=== PATIENT | male | born 1980 | race African-American/Black ===

== ENCOUNTER 2018-12-12 06:09 | Emergency (ER) | payer OTHER ==
[2018-12-12 07:06] VITALS: TEMP 98
[2018-12-12] MEDS ORDERED: LIDOCAINE 5% TOPICAL PATCH TP ONE (07:15)
[2018-12-12] MEDS ORDERED: diazePAM 5 MG TABLET PO ONE (07:15)
[2018-12-12] MEDS ORDERED: IBUPROFEN 400 MG TABLET (FP) PO ONE ×2 (07:15→07:36)
--- NOTE | 2018-12-12 07:19 | PDOC ---
History of Present Illness - General Chief Complaint: Chest Pain Stated Complaint: CHEST PAIN Time Seen by Provider: 12/12/18 07:04 History Source: Patient Exam Limitations: No Limitations - History of Present Illness Initial Comments: 12/12/18 07:15 Patient is a 38M with history of HTN here today complaining of chest pain that onset last night. Patient endorses cleaning out his basement earlier in the day. He states that he is presenting today because he had difficulty with turning the steering wheel. Pain is worse with palpation and movement of left arm. Denies fevers, chills, nausea, vomiting. Denies shortness of breath, endorses a mild cough. Father had bypass in 70s. Denies history of blood clots, recent travel, leg swelling. Has taken no medication. Family available to drive patient home. Past History - Past Medical History Allergies/Adverse Reactions: Allergies Allergy/AdvReac Type Severity Reaction Status Date / Time No Known Allergies Allergy Verified 04/03/18 13:01 Home Medications: Ambulatory Orders Lisinopril 10 mg PO DAILY 04/03/18 COPD: No DVT: No Dementia: No HTN: Yes - Immunization History Immunization Up to Date: Yes - Suicide/Smoking/Psychosocial Hx Smoking History: Never smoked Have you smoked in the past 12 months: No Hx Alcohol Use: Yes (daily) Drug/Substance Use Hx: No Substance Use Type: None Review of Systems - Review of Systems Able to Perform ROS?: Yes Comments:: 12/12/18 07:24 GENERAL/CONSTITUTIONAL: No fever or chills. No weakness. HEAD, EYES, EARS, NOSE AND THROAT: No change in vision. No ear pain or discharge. No sore throat. CARDIOVASCULAR: +chest pain no shortness of breath RESPIRATORY: +cough, no wheezing, or hemoptysis. GASTROINTESTINAL: No nausea, vomiting, diarrhea or constipation. GENITOURINARY: No dysuria, frequency, or change in urination. MUSCULOSKELETAL: No joint or muscle swelling or pain. No neck or back pain. SKIN: No rash NEUROLOGIC: No headache, vertigo, loss of consciousness, or change in strength/ sensation. HEMATOLOGIC/LYMPHATIC: No anemia, easy bleeding, or history of blood clots. ALLERGIC/IMMUNOLOGIC: No hives or skin allergy. *Physical Exam - Vital Signs Last Vital Signs Temp Pulse Resp BP Pulse Ox 98.0 F 66 18 150/86 99 12/12/18 07:05 12/12/18 07:05 12/12/18 06:27 12/12/18 07:05 12/12/18 07:05 - Physical Exam Comments: 12/12/18 07:24 GENERAL: Awake, alert, and fully oriented, in no acute distress CHEST: Tender along L pectoralis major, pain with movement of arm HEAD: No signs of trauma, normocephalic, atraumatic EYES: PERRLA, EOMI, sclera anicteric, conjunctiva clear ENT: Auricles normal inspection, hearing grossly normal, nares patent, oropharynx clear without exudates. Moist mucosa NECK: Normal ROM, supple, no lymphadenopathy, JVD, or masses LUNGS: No distress, speaks full sentences, clear to auscultation bilaterally HEART: Regular rate and rhythm, normal S1 and S2, no murmurs, rubs or gallops, peripheral pulses normal and equal bilaterally. ABDOMEN: Soft, nontender, normoactive bowel sounds. No guarding, no rebound. No masses EXTREMITIES: Normal inspection, Normal range of motion, no edema. No clubbing or cyanosis. NEUROLOGICAL: Cranial nerves II through XII grossly intact. Normal speech, no focal sensorimotor deficits SKIN: Warm, Dry, normal turgor, no rashes or lesions noted. Medical Decision Making - Medical Decision Making 12/12/18 07:25 Patient is 38M with history of HTN here today with chest pain. EKG shows NSR with normal rate. No st elevations/depressions. Normal axis. Normal intervals. No significant t wave abnormalities. ACS and other major causes of chest pain considered, dismissed given age, onset, and exquisite tenderness along pectoralis. Will treat with motrin, valium, lidocaine patch. Will do CXR to rule out pneumonia, pneumothorax. 12/12/18 08:20 CXR negative. Patient reassessed, pain improved, can move arm now with little pain. Will discharge home. *DC/Admit/Observation/Transfer Diagnosis at time of Disposition: Chest pain - Discharge Dispostion Disposition: HOME Condition at time of disposition: Good Decision to Admit order: No - Referrals - Patient Instructions Printed Discharge Instructions: DI for Atypical Chest Pain Additional Instructions: Please follow up with your primary care provider. If you do not have one, one is listed below. Please return if you have any new, worsening or concerning symptoms, especially increasing pain, fever and shortness of breath. Please take the flexeril as needed for muscle spasm and motrin for pain. - Post Discharge Activity Forms/Work/School Notes: Back to Work
--- NOTE | 2018-12-12 07:30 | PDOC ---
Attending Attestation - Resident Resident Name: Tevin Schmitz - ED Attending Attestation I have performed the following: I have examined & evaluated the patient, The case was reviewed & discussed with the resident, I agree w/resident's findings & plan - HPI HPI: 12/12/18 07:31 38-year-old male with history of hypertension lisinopril presenting with left- sided sharp chest pain worse with movement beginning since last night. He has not taken any medications for pain. He admits to cleaning the basement and lifting several days ago but denies any direct trauma or falls. Denies any shortness breath, palpitations, dizziness. He started to have URI symptoms yesterday to today, no fevers. No abdominal symptoms, vomiting or diarrhea. - Physicial Exam PE: 12/12/18 07:30 NAD, well appearing, MMM, nl conjunctiva, anicteric; neck supple. very reproducible left pectoralis/anterior chest wall Tenderness to palp. lungs clear , RRR, no murmur, abdomen soft nontender. MARTIN x4, no focal neuro deficits. No peripheral edema. normal color for ethnicity, WW. - Medical Decision Making 12/12/18 07:31 See HPI for details Vital signs reviewed, mild hypertension, but in pain. has h/o htn, on lisinopril EKG normal sinus rhythm at 61 bpm, no interval abnormalities, narrow QRS, ST and T wave segments and morphology normal. ED course - Well-appearing, no acute distress. Chest pain is very reproducible to palpation over the left pectoralis muscle, no exertional component, nonradiating , sharp in nature with preceding MSK trigger, so likelihood of this being cardiac in nature.. low suspicion for cardiac type cp based on clinical history and exam. no PE risk factors, no leg swelling/immobilization or surgeries, perc neg, so doubt PE/VTE. This is likely MSK in etiology. EKG is normal sinus rhythm without interval derangements or ST segment depressions/elevations, without ischemic changes. Mildly hypertensive but patient is on lisinopril which he took this morning for his high blood pressure. Chest x-ray is clear without evidence of pneumonia, normal cardiac silhouette and no edema/effusion. Analgesia administered with topical lidocaine patch for myofascial pain, Valium for muscle relaxation and ibuprofen, with symptomatic improvement of his chest pain. able to range his arm more, pain improved. Dispo: Pt informed of my clinical impression, treatment recommendations and disposition plan. All questions answered to patient's satisfaction and expressed understanding and comfort with this. Reasons for returning to the ED sooner discussed with the patient otherwise, follow up with primary care physician. At the time of discharge, the patient is alert, clinically improved, tolerating po and verbalizes understanding of instructions. Patient does not suffer from an acute life-threatening medical condition at this time she is safe for outpatient follow-up. 12/12/18 07:35 12/12/18 08:24 Heart Score/ECG Review #1 ECG reviewed & interpreted by me at: 06:35 General ECG Interpretation: Sinus Rhythm, Normal Rate, Normal Intervals, No acute ischemic changes 12/12/18 07:35 EKG normal sinus rhythm at 61 bpm, no interval abnormalities, narrow QRS, ST and T wave segments and morphology normal.
[2018-12-12] MEDS ORDERED: diazePAM 5 MG TABLET ONE (07:31)
[2018-12-12] MEDS ORDERED: LIDOCAINE 5% TOPICAL PATCH ONE (07:31)
[2018-12-12 08:39] VITALS: BP 151/90; PULSE 65
--- NOTE | 2018-12-12 14:42 | EKG ---
Test Reason : Blood Pressure : / mmHG Vent. Rate : 061 BPM Atrial Rate : 061 BPM P-R Int : 180 ms QRS Dur : 088 ms QT Int : 400 ms P-R-T Axes : 032 047 035 degrees QTc Int : 402 ms NORMAL SINUS RHYTHM NORMAL ECG WHEN COMPARED WITH ECG OF 03-APR-2018 13:08, NO SIGNIFICANT CHANGE WAS FOUND Confirmed by Phong North ([id number]) on 12/12/2018 2:41:35 PM Referred By: Confirmed By:Phong North
[2018-12-12] MEDS ORDERED: LIDOCAINE PATCH REMOVAL MC SCH (22:00)
== END 2018-12-12 08:39 | disposition home or self-care (01) ==
LOC: JER 06:09
DX: R07.9 Chest pain, unspecified (principal); I10 Essential (primary) hypertension
CPT/HCPCS: 71046-TC-FY; 93005; 93010; 99282-25

== ENCOUNTER 2019-07-04 15:16 | Emergency (ER) | payer OTHER ==
[2019-07-04 15:30] VITALS: BMI 30.8
--- NOTE | 2019-07-04 15:40 | PDOC ---
Rapid Medical Evaluation Chief Complaint: Blood Pressure Problem Time Seen by Provider: 07/04/19 15:37 Medical Evaluation: Allergies Allergy/AdvReac Type Severity Reaction Status Date / Time No Known Allergies Allergy Verified 07/04/19 15:29 Vital Signs Temp Pulse Resp BP Pulse Ox 98.1 F 81 19 142/99 99 07/04/19 15:27 07/04/19 15:27 07/04/19 15:27 07/04/19 15:27 07/04/19 15:27 07/04/19 15:38 Pt c/o: elevated bp x 2 days (170/100) doubled his lisinopril dose this am but still with elevated bp and mild frontal throbbing headache Pt on brief exam:142/99, no jvd, lcta, no lower extremity edema Pt ordered for: labs, urine, ekg Pt to proceed to the ED Discharge Disposition - Diagnosis Hypertension - Referrals - Patient Instructions - Post Discharge Activity
[2019-07-04 16:09] LABS: BASO % 0.6 % (0-2.0); EOS % 1.1 % (0-4.5); HEMATOCRIT 43.8 % (35.4-49); HEMOGLOBIN 14.9 GM/dL (11.7-16.9); LYMPH % 53.8 % (8-40); MEAN CELL VOLUME 88.3 fl (80-96); MEAN PLT VOLUME 10.4 fl (7.5-11.1); MONO % 5.6 % (3.8-10.2); NEUT % 38.9 % (42.8-82.8); PLATELET COUNT 149 K/MM3 (134-434); RBC 4.96 M/mm3 (4.00-5.60); WHITE BLOOD COUNT 3.3 K/mm3 (4.0-10.0)
[2019-07-04 16:11] LABS: PH,URINE 6.5 (5.0-8.0); URINE APPEARANCE CLEAR; URINE BILIRUBIN NEGATIVE (NEGATIVE); URINE COLOR YELLOW; URINE GLUCOSE (UA) NEGATIVE (NEGATIVE); URINE KETONE NEGATIVE (NEGATIVE); URINE LEUK ESTERASE NEGATIVE (NEGATIVE); URINE NITRITE NEGATIVE (NEGATIVE); URINE PROTEIN NEGATIVE (NEGATIVE); URINE UROBILINOGEN 0.2 mg/dL (0.2-1.0)
--- NOTE | 2019-07-04 16:23 | PDOC ---
Attending Attestation - Resident Resident Name: SantillanJos corado - ED Attending Attestation I have performed the following: I have examined & evaluated the patient, The case was reviewed & discussed with the resident, I agree w/resident's findings & plan, Exceptions are as noted - HPI HPI: 07/04/19 16:25 Mr Rivas is a 39 yo M h/o HTN on Lisinopril who presents to the ER with a complaint of persistently elevated BP and headache Pt headache is at the top of his head and frontal Began 5 days ago after returning from work Headache was bearable and minor initially Pain has been worsening over the past few days No associated neck pain No fevers or chills No head trauma No vomiting Tolerating PO Per , pt has been drinking more alcohol and she thinks this is the cause of his headaches 07/04/19 18:40 - Physicial Exam PE: 07/04/19 16:23 GENERAL: The patient is in no acute distress. HEAD: Normal EYES: PERRLA, EOMI, sclera anicteric, conjunctiva clear. ENT: Ears normal, nares patent, oropharynx clear without exudates. Moist mucous membranes. NECK: Normal range of motion, supple LUNGS: Breath sounds equal, clear to auscultation bilaterally. No wheezes, and no crackles. HEART:Regular rate and rhythm, normal S1 and S2 without murmur, rub or gallop. ABDOMEN: Soft, nontender, normoactive bowel sounds. No guarding, no rebound. EXTREMITIES: Normal range of motion, no edema. NEUROLOGICAL: Cranial nerves II through XII grossly intact. Normal speech. No focal neurological deficits. Mental status: The patient is oriented x3. Cranial nerves: Cranial nerves II through XII are intact Motor: The upper extremities are 5 over 5 in all muscle groups. The lower extremities are 5 over 5 in all muscle groups. Sensation: Sensation is intact to light touch throughout. Cerebellar: Dveiue-chnxnh-nvhm is normal in both upper extremities. Heel-knee- wilson is normal in both lower extremities. Reflexes: 2+ and symmetric in the upper and lower extremities. Gait: Normal. Heel and toe walking are normal. MUSCULOSKELETAL: Back non-tender to palpation, no CVA tenderness SKIN: Warm, Dry, normal turgor, no rashes or lesions noted. - Medical Decision Making 07/04/19 16:19 Laboratory Tests 07/04/19 07/04/19 15:30 15:30 WBC 3.3 L Hgb 14.9 Hct 43.8 Plt Count 149 Urine Blood Negative Urine Nitrite Negative Ur Leukocyte Esterase Negative EKG - Twelve-lead EKG was personally reviewed. There is normal sinus rhythm. The axis is normal. The intervals are normal. There is no atrial or ventricular hypertrophy. There are no ST or T wave abnormalities. There is normal R wave progression. Impression: Normal 12 lead EKG Will give tylenol for headache CT ordered Pt refused 07/04/19 18:29 Upon reassessment, pt states he feels better Will discharge to home Pt asked to follow up with PMD for possible medication adjustment Clinical impression: headache, initial presentation hypertension, initial presentation
[2019-07-04] MEDS ORDERED: ACETAMINOPHEN 500 MG TABLET (FP) PO ONE (16:27)
--- NOTE | 2019-07-04 16:27 | PDOC ---
History of Present Illness - General Chief Complaint: Blood Pressure Problem Stated Complaint: HIGH BLOOD PRESSURE Time Seen by Provider: 07/04/19 15:37 - History of Present Illness Initial Comments: 07/04/19 16:21 39 yo M PMH HTN, migraines, coming in with elevated blood pressure for 2 days. States that he tried taking two of his lisinopril 10mg pills without effect. Denies CP, SOB, N/V, abd pain, fevers/chills, constipation/diarrhea. Does endorse frontal headache and urinary frequency. Patient is very concerned that he could be having a stroke. Reports that his grandfather of a stroke and a lot of family members have had this issue, so he was worried. Also states that he read on the Internet that some antihypertensives can cause impotency. Reports that he has been having significantly more stress recently, and asks whether this could be contributing to his headache or his elevated blood pressure. Past History - Past Medical History Allergies/Adverse Reactions: Allergies Allergy/AdvReac Type Severity Reaction Status Date / Time No Known Allergies Allergy Verified 07/04/19 15:29 Home Medications: Ambulatory Orders Lisinopril 10 mg PO DAILY 04/03/18 Cyclobenzaprine HCl [Flexeril -] 10 mg PO TID #10 tablet 12/12/18 COPD: No DVT: No Dementia: No HTN: Yes - Immunization History Immunization Up to Date: Yes - Psycho Social/Smoking Cessation Hx Smoking History: Never smoked Have you smoked in the past 12 months: No Information on smoking cessation initiated: No Hx Alcohol Use: No Drug/Substance Use Hx: No Substance Use Type: None Review of Systems - Review of Systems Constitutional: No: Chills, Diaphoresis, Fever HEENTM: No: Eye Pain, Blurred Vision, Recent change in vision, Double Vision, Hearing Loss, Throat Swelling, Difficulty Swallowing Respiratory: No: Cough, Orthopnea, Shortness of Breath Cardiac (ROS): No: Chest Pain, Irregular Heart Rate, Palpitations, Chest Tightness ABD/GI: No: Constipated, Diarrhea, Nausea, Vomiting : Yes: Frequency. No: Burning, Dysuria, Discharge, Flank Pain Musculoskeletal: No: Back Pain, Muscle Weakness Neurological: Yes: Headache. No: Numbness, Tingling, Weakness, Unsteady Gait, Ataxia, Dizziness *Physical Exam - Vital Signs Last Vital Signs Temp Pulse Resp BP Pulse Ox 98.1 F 81 19 142/99 99 07/04/19 15:27 07/04/19 15:27 07/04/19 15:27 07/04/19 15:27 07/04/19 15:27 - Physical Exam Comments: 07/04/19 18:10 Gen: well-developed, well-nourished, NAD Neuro: AAOX4, CN II-XII intact, FTN intact, EOMI, PERRLA, 5/5 strength, SILT HEENT: atraumatic, normocephalic, dry mucous membranes Neck: trachea midline, supple CV: regular rate, regular rhythm, no murmurs, rubs, or gallops Pulm: CTA b/l, no wheezing Abd: soft, non-distended, non-tender MSK: full ROM, intact pulses Extr: no edema, no deformities Skin: warm, dry ED Treatment Course - LABORATORY CBC & Chemistry Diagram: 07/04/19 15:30 07/04/19 15:30 - ADDITIONAL ORDERS Additional order review: Laboratory Results 07/04/19 15:30 Urine Color Yellow Urine Appearance Clear Urine pH 6.5 Ur Specific [place] 1.016 Urine Protein Negative Urine Glucose (UA) Negative Urine Ketones Negative Urine Blood Negative Urine Nitrite Negative Urine Bilirubin Negative Urine Urobilinogen 0.2 Ur Leukocyte Esterase Negative 07/04/19 15:30 RBC 4.96 MCV 88.3 MCHC 34.0 RDW 12.0 MPV 10.4 Neutrophils % 38.9 L D Lymphocytes % 53.8 H D Monocytes % 5.6 Eosinophils % 1.1 D Basophils % 0.6 Medical Decision Making - Medical Decision Making 07/04/19 16:24 Gave thorough explanation of long-term risks of hypertension, and stressed both that he is not currently having stroke, but also that adequate control of blood pressure is important to reduce long-term chances of stroke. Patient relieved by this conversation. Will provide BOWEN medication, follow up labs, likely dc with close outpatient follow-up and potential adjustment of blood pressure medication regimen. 07/04/19 16:45 Labs unremarkable, UA unremarkable. 07/04/19 16:47 Normal sinus at 69 bpm, normal intervals, no ST segment elevations or T wave inversions. 07/04/19 17:44 Patient reassessed, feeling significantly better. Will finish fluids, likely dc home. Discharge - Discharge Information Problems reviewed: Yes Clinical Impression/Diagnosis: Hypertension, Headache Condition: Improved - Follow up/Referral Referrals: Johny Omalley [Primary Care Provider] - - Patient Discharge Instructions Patient Printed Discharge Instructions: DI for High Blood Pressure, DI for Headache Additional Instructions: You were seen with a headache and with higher blood pressures for the past 2 days. Your blood pressure in the ED was only slightly elevated, and your headache resolved after medication. Your labs and EKG did not show any concerning findings. Please follow up with your primary care doctor within 1 week, and discuss your current blood pressure medication regimen with him. Return to the ED if you develop worsening symptoms such as chest pain or shortness of breath. - Post Discharge Activity
[2019-07-04 16:36] LABS: ALBUMIN 4.2 g/dl (3.4-5.0); BILIRUBIN,TOTAL 1.6 mg/dL (0.2-1); BLOOD UREA NITROGEN 7.9 mg/dL (7-18); CALCIUM 9.5 mg/dL (8.5-10.1); CREATININE 1.1 mg/dL (0.55-1.3); MAGNESIUM 1.9 mg/dL (1.8-2.4); POTASSIUM 4.2 mmol/L (3.5-5.1); TOT PROT 7.9 g/dl (6.4-8.2)
[2019-07-04] MEDS ORDERED: ACETAMINOPHEN 325 MG TABLET (FP) ONE (16:42)
[2019-07-04] MEDS ORDERED: SODIUM CHLORIDE 1,000 ML IV STA (16:59)
[2019-07-04] MEDS ORDERED: METOCLOPRAMIDE HCL INJECTION 10 MG/2 ML VIAL IVPUSH ONE (16:59)
[2019-07-04] MEDS ORDERED: METOCLOPRAMIDE HCL INJECTION 10 MG/2 ML VIAL ONE (17:13)
[2019-07-04 18:35] VITALS: BP 138/92; PULSE 76; TEMP 98
--- NOTE | 2019-07-05 13:35 | EKG ---
Test Reason : Blood Pressure : / mmHG Vent. Rate : 069 BPM Atrial Rate : 069 BPM P-R Int : 174 ms QRS Dur : 086 ms QT Int : 358 ms P-R-T Axes : 029 035 038 degrees QTc Int : 383 ms NORMAL SINUS RHYTHM NORMAL ECG WHEN COMPARED WITH ECG OF 12-DEC-2018 06:34, NO SIGNIFICANT CHANGE WAS FOUND Confirmed by SHEEBA KNIGHT MD ([id number]) on 07/05/2019 1:35:21 PM Referred By: Confirmed By:SHEEBA KNIGHT MD
== END 2019-07-04 18:35 | disposition home or self-care (01) ==
LOC: JER 15:16
PROC: 3E033GC Introduction of Other Therapeutic Substance into Peripheral Vein, Percutaneous Approach (ICD-10-PCS; principal; 2019-07-04)
DX: I10 Essential (primary) hypertension (principal); R51 Headache
CPT/HCPCS: 36415; 80053; 81003; 83735; 85025; 93005; 93010; 99283-25; J7030

== ENCOUNTER 2021-10-09 17:44 | Emergency (ER) | payer OTHER ==
[2021-10-09 18:01] VITALS: TEMP 98; BMI 31.4
[2021-10-09] MEDS ORDERED: ASPIRIN 81 MG CHEWABLE TABLETS PO ONE (19:59)
[2021-10-09] MEDS ORDERED: ASPIRIN 81 MG CHEWABLE TABLETS ONE (20:30)
[2021-10-09 20:58] LABS: BASO % 0.4 % (0-2.0); EOS % 0.5 % (0-4.5); HEMATOCRIT 44.8 % (35.4-49); HEMOGLOBIN 15.5 GM/dL (11.7-16.9); LYMPH % 47.4 % (8-40); MCH 30.3 pg (25.7-33.7); MCHC 34.6 g/dl (32.0-35.9); MEAN CELL VOLUME 87.4 fl (80-96); MEAN PLT VOLUME 10.2 fl (7.5-11.1); MONO % 5.2 % (3.8-10.2); NEUT % 46.5 % (42.8-82.8); PLATELET COUNT 180 10^3/uL (134-434); RBC 5.12 M/mm3 (4.00-5.60); RDW 12.7 % (11.9-15.9); WHITE BLOOD COUNT 4.6 K/mm3 (4.0-10.0)
[2021-10-09 21:05] LABS: INR 1.21 (0.83-1.09)
[2021-10-09 21:08] LABS: ACTIVATED PTT 31.3 SECONDS (25.2-36.5)
[2021-10-09 21:26] LABS: CHLORIDE 104 mmol/L (98-107); SODIUM 139 mmol/L (136-145)
[2021-10-09 21:28] LABS: ALBUMIN 4.5 g/dl (3.4-5.0); ANION GAP 7 MMOL/L (8-16); BLOOD UREA NITROGEN 12.4 mg/dL (7-18); CALCIUM 9.5 mg/dL (8.5-10.1); CO2 28 mmol/L (21-32); LIPASE 94 U/L (73-393); MAGNESIUM 2.1 mg/dL (1.8-2.4)
[2021-10-09 21:29] LABS: GLUCOSE,RANDOM 80 mg/dL (74-106)
[2021-10-09 21:31] LABS: SGOT/AST 17 U/L (15-37); SGPT/ALT 29 U/L (13-61)
[2021-10-09 21:33] LABS: BILIRUBIN,TOTAL 1.6 mg/dL (0.2-1); TOT PROT 8.4 g/dl (6.4-8.2)
[2021-10-09 21:34] LABS: ALK PHOS 84 U/L (45-117)
[2021-10-10 00:43] VITALS: BP 140/82; PULSE 85
== END 2021-10-10 00:43 | disposition home or self-care (01) ==
LOC: JER 17:44
DX: R10.13 Epigastric pain (principal); R07.9 Chest pain, unspecified
CPT/HCPCS: 36415; 71046-TC-FY; 76705-TC; 80053; 82550; 82553; 83690; 83735; 84484; 85025; 85610; 85730; 93005; 93010; 99285-25

== ENCOUNTER 2023-07-25 09:42 | Inpatient (IN) | payer OTHER ==
[2023-07-25] MEDS ORDERED: SODIUM CHLORIDE 1,000 ML IV STA (10:45)
[2023-07-25] MEDS ORDERED: PANTOPRAZOLE SODIUM 40 MG VIAL IVPUSH ONE (11:08)
[2023-07-25 11:53] LABS: BASO % 0.6 % (0-2.0); HEMATOCRIT 41.4 % (35.4-49); HEMOGLOBIN 14.6 GM/dL (11.7-16.9); LYMPH % 31.7 % (8-40); MCH 30.9 pg (25.7-33.7); MCHC 35.1 g/dl (32.0-35.9); MEAN PLT VOLUME 9.9 fl (7.5-11.1); MONO % 4.6 % (3.8-10.2); NEUT % 63.1 % (42.8-82.8); PLATELET COUNT 190 10^3/uL (134-434); RBC 4.71 M/mm3 (4.00-5.60); RDW 12.3 % (11.9-15.9); WHITE BLOOD COUNT 4.2 K/mm3 (4.0-10.0)
[2023-07-25 12:03] LABS: INR 1.24 (0.83-1.09); PROTHROMBIN TIME (PATIENT) 14.4 SEC (9.7-13.0)
[2023-07-25 12:05] LABS: ACTIVATED PTT 29.2 SECONDS (25.2-36.5)
[2023-07-25 12:10] LABS: POTASSIUM 4.6 mmol/L (3.5-5.1)
[2023-07-25 12:12] LABS: CALCIUM 9.1 mg/dL (8.5-10.1)
[2023-07-25 12:13] LABS: ALBUMIN 4.2 g/dl (3.4-5.0); BLOOD UREA NITROGEN 10.8 mg/dL (7-18)
[2023-07-25 12:17] LABS: TOT PROT 8.1 g/dl (6.4-8.2)
[2023-07-25 12:18] LABS: BILIRUBIN,TOTAL 0.9 mg/dL (0.2-1)
[2023-07-25] MEDS ORDERED: PANTOPRAZOLE SODIUM 40 MG VIAL ONE (12:20)
[2023-07-25 18:47] VITALS: BMI 32.6
[2023-07-25 20:06] LABS: HEMATOCRIT 40.2 % (35.4-49); HEMOGLOBIN 13.8 GM/dL (11.7-16.9); MCH 30.6 pg (25.7-33.7); MCHC 34.5 g/dl (32.0-35.9); MEAN CELL VOLUME 88.9 fl (80-96); MEAN PLT VOLUME 10.5 fl (7.5-11.1); PLATELET COUNT 196 10^3/uL (134-434); RBC 4.52 M/mm3 (4.00-5.60); RDW 12.1 % (11.9-15.9); WHITE BLOOD COUNT 5.9 K/mm3 (4.0-10.0)
[2023-07-25 20:20] LABS: URINE APPEARANCE Clear; URINE BILIRUBIN Negative (NEGATIVE); URINE COLOR Yellow; URINE GLUCOSE (UA) Negative (NEGATIVE); URINE KETONE Negative (NEGATIVE); URINE LEUK ESTERASE Negative (NEGATIVE); URINE NITRITE Negative (NEGATIVE); URINE PROTEIN Negative (NEGATIVE); URINE UROBILINOGEN 0.2 mg/dL (0.2-1.0)
[2023-07-25] MEDS: PANTOPRAZOLE 40 MG TABLET PO SCH (22:28)
[2023-07-26 08:34] LABS: BASO % 0.4 % (0-2.0); EOS % 0.3 % (0-4.5); HEMATOCRIT 39.7 % (35.4-49); LYMPH % 42.3 % (8-40); MCH 31.5 pg (25.7-33.7); MCHC 35.3 g/dl (32.0-35.9); MEAN CELL VOLUME 89.3 fl (80-96); MEAN PLT VOLUME 10.3 fl (7.5-11.1); MONO % 7.5 % (3.8-10.2); NEUT % 49.5 % (42.8-82.8); PLATELET COUNT 178 10^3/uL (134-434); RBC 4.45 M/mm3 (4.00-5.60); RDW 12.2 % (11.9-15.9); WHITE BLOOD COUNT 3.7 K/mm3 (4.0-10.0)
[2023-07-26 08:41] LABS: POTASSIUM 4.4 mmol/L (3.5-5.1)
[2023-07-26 08:47] LABS: CALCIUM 9.2 mg/dL (8.5-10.1)
[2023-07-26 08:48] LABS: ALBUMIN 3.8 g/dl (3.4-5.0); BLOOD UREA NITROGEN 11.6 mg/dL (7-18)
[2023-07-26 08:50] LABS: BILIRUBIN,TOTAL 2.1 mg/dL (0.2-1)
[2023-07-26 08:51] LABS: PHOSPHOROUS 3.2 mg/dL (2.5-4.9); TOT PROT 7.4 g/dl (6.4-8.2)
[2023-07-26] MEDS: PANTOPRAZOLE 40 MG TABLET PO SCH (10:17)
[2023-07-26 12:01] LABS: BILIRUBIN,DIRECT 0.4 mg/dL (0.0-0.2)
[2023-07-26 14:38] VITALS: RESP 18
[2023-07-26 18:46] VITALS: BP 130/82; PULSE 78; TEMP 98.8
== END 2023-07-26 18:40 | disposition home or self-care (01) | DRG 379 ==
LOC: JER 09:42 → JERBED 15:39 → J8W 17:57
PROVIDERS: ADMIT Internal Medicine; ATTEND Nurse Practitioner Acute Care
PROC: 0DB58ZX Excision of Esophagus, Via Natural or Artificial Opening Endoscopic, Diagnostic (ICD-10-PCS; 2023-07-26)
PROC: 0DB98ZX Excision of Duodenum, Via Natural or Artificial Opening Endoscopic, Diagnostic (ICD-10-PCS; principal; 2023-07-26 14:00)
DX: K92.2 Gastrointestinal hemorrhage, unspecified (principal); I10 Essential (primary) hypertension; G43.909 Migraine, unspecified, not intractable, without status migrainosus; R35.0 Frequency of micturition; K29.21 Alcoholic gastritis with bleeding; K44.9 Diaphragmatic hernia without obstruction or gangrene
CPT/HCPCS: 36415; 74177-TC; 80053; 81003; 82248; 82272; 83036; 83735; 83880; 84100; 85025; 85027; 85610; 85730; 86850; 86900; 86901; 87086; 88305-TC; 93005; 93010; 99285-25; Q9967